=== PATIENT | female | born 2000 | race Two or more races ===

== ENCOUNTER 2024-06-07 20:51 | Emergency (ER) | payer MEDICAID, SELFPAY ==
[2024-06-07 20:52] VITALS: BMI 21.7
[2024-06-07 21:01] VITALS: BP 110/72; PULSE 92; RESP 20; TEMP 37.1; O2SAT 95
--- NOTE | 2024-06-07 21:14 | XR_ITS ---
Examination: PA lateral chest 2 views TECHNIQUE: Upright PA lateral chest 2 views Exam date and time: June 07, 2024 2132 hours INDICATIONS: Cough and fever beginning 4 days ago. FINDINGS: Significant pneumonia left base Minimal pneumonia right perihilar region Normal heart size IMPRESSION: Significant pneumonia left base
--- NOTE | 2024-06-07 21:18 | EDNOTE_ITS ---
Upper Respiratory Inf. RME/HPI General Chief Complaint: Dental/Oral/Throat Stated Complaint: sore throat Time Seen by Provider: 06/07/24 21:14 Arrival date/time: 06/07/24 20:51 23 year old female present to emergency room with c/o of sore throat and cough for 3 days. LOCATION: posterior oral pharynx SEVERITY: Symptoms are described as being severe with limitations on activities of daily living QUALITY: Symptoms are described as being dull or achy CONTEXT: The patient is unable to identify any inciting events. DURATION/TIMING: The symptoms started approximately 3 day ago and have been constant this then. ASSOCIATED SYMPTOMS: The patient is unable to identify any other associated symptoms. MODIFYING FACTORS: worse with swallowing PERTINENT ROS: denies any food or liquids getting stuck, denies any generalized weakness, denies any trauma, no chest pain, no abdominal pain, no rashes, no joint swelling REVIEW OF SYSTEMS: See History of Present Illness - with the exception of those mentioned in the history of present illness, all other systems reviewed and reported as negative GENERAL: In general the patient is awake, interactive, in an emergency department gurney. HEAD/EYES/EARS/NOSE/THROAT: normo-cephalic, atraumatic, mucus membranes are moist, anicteric, palpebral conjunctiva is pink, trachea is midline. CARDIOVASCULAR: regular rate and regular rhythm, no murmurs, heart sounds are not distant, strong pulses in all four extremities that are equal and symmetric bilateral upper and lower extremities, normal capillary refill. CHEST/PULMONARY: normal chest rise and fall, good air movement, clear to auscultation bilaterally, normal inspiratory to expiratory ratios without evidence of respiratory distress. NECK: No midline/Paraspinal tenderness, no step off ROM/Strenght intact No Kernig and bruzinski sign. No trauma ABDOMEN: soft, not tender, no masses appreciated BACK: normal range of motion without pain. NEUROLOGICAL: cranio-facial features are symmetric, moves all four extremities equally without obvious limitations or weakness. EXTREMITY: no tenderness to palpation over the long bones or large joints of the bilateral upper and lower extremities, no joint swelling, no joint erythema, no signs of trauma, no unilateral leg swelling and no peripheral edema. SKIN: warm, dry, well-perfused, no jaundice, no rash, no telangiectasias or petechia. PSYCH: calm, cooperative, no evidence of psychosis or agitation Related Data Previous Rx's ?Medication ?Instructions ?Recorded azithromycin 500 mg tablet 500 mg PO QDAY 3 days #3 ta bs 06/07/24 methylprednisolone 4 mg tablets in 4 mg PO .as directe d #21 tabs 06/07/24 a dose pack (Medrol (Piyush)) Allergies Allergy/AdvReac Type Severity Reaction Status Date / Time No Known Allergies Allergy Verified 06/07/24 20:57 Course Course Course Narrative: xray, strep ,covid/flu tylenol, decadron Quality Measures none Orders Category Date Time Status Bedside Influenza A&B Antigen Test NOW Care 06/07/24 21:13 Completed XR chest 2V Stat Exams 06/07/24 21:14 Completed Strep A Rapid Stat Lab 06/07/24 21:15 Completed Acetaminophen Tab [Tylenol ES Tab] Med 06/07/24 21:13 Discontinued 1,000 mg PO X1 ONE Azithromycin Po [Zithromax PO] Med 06/07/24 22:05 Discontinued 500 mg PO X1 ONE Dexamethasone Inj [Decadron Inj] Med 06/07/24 21:13 Discontinued 10 mg PO X1 ONE Reevaluation(s) Reevaluation #1: pt is feeling better Vital Signs Vital signs: Vital Signs Temperature 98.7 F 06/07/24 21:01 Pulse Rate 92 06/07/24 21:01 Respiratory Rate 20 06/07/24 21:01 Blood Pressure 110/72 06/07/24 21:01 Pulse Oximetry (%) 95 06/07/24 21:01 Oxygen Delivery Method Room Air 06/07/24 21:01 Upper Respiratory Infection Patient data External records reviewed:: [facility] previous records Clinical information provided by:: patient Social determinants that could affect healthcare access:: none Patient has the following chronic illnesses:: n/a How is presenting disease/condition affected by chronic disease/condition?: no chronic disease Evaluation data The following diagnostics were reviewed and interpreted by me:: lab results and radiology exam(s) Lab and/or radiology exams considered but not ordered:: n/a Interpretation Summary: + flu, negative strep xray; Significant pneumonia left base Minimal pneumonia right perihilar region Normal heart size IMPRESSION: Significant pneumonia left base Medications / Prescriptions Medications or Prescriptions considered but not ordered:: n/a Medication administrations:: Medication Administration History Discontinued Medications Acetaminophen (Acetaminophen 500 Mg Tablet) 1,000 mg PO X1 ONE Stop: 06/07/24 21:14 Last Admin: 06/07/24 22:13 Dose: 1,000 mg Documented By: KF Azithromycin (Azithromycin 250 Mg Tablet) 500 mg PO X1 ONE Stop: 06/07/24 22:06 Last Admin: 06/07/24 22:13 Dose: 500 mg Documented By: KF Dexamethasone Sodium Phosphate (Dexamethasone Sod Phos Inj 10 Mg/Ml Vial) 10 mg PO X1 ONE Stop: 06/07/24 21:14 Last Admin: 06/07/24 22:14 Dose: 10 mg Documented By: KF n/a Consultations Consultation(s) initiated? (list below): No Diagnosis Upper Respiratory Differential Diagnosis: upper respiratory infection, viral infection, bronchitis, influenza, pharyngitis and other (pna ) Most likely diagnosis given after review of the tests above:: pna , flu Admission Indicated Admission indicated?: not indicated Admission Request Was there a request for admission?: No Disposition Plan Disposition Plan: Discharge Discharge Attestation Discharge Attestation: The patient and all family members were given an opportunity to ask questions and understood the discharge instructions. Discharge instructions specifically effects, indications for sooner follow up or return to the emergency department, and the expected course of current diagnosis. Patient condition: Stable Discharge Plan Plan Patient Disposition: HOME (Self Care) Prescriptions/Referrals Prescriptions/Med Rec: New azithromycin 500 mg tablet 500 mg PO QDAY 3 Days Qty: 3 0RF methylprednisolone [Medrol (Piyush)] 4 mg tablets,dose pack 4 mg PO .as directed Qty: 21 0RF Referrals: No Primary/Family,Physician [Primary Care Provider] - In 1 week Problem List Clinical Impression: Pneumonia, Influenza Patient/Caregiver Discharge Instructions Education Materials: ED Influenza (Adult), ED Pneumonia (Adult) Print Language: Latvian Stand Alone Forms: Whitney Award Info., Patient Portal Info Letter
[2024-06-07 21:48] LABS: Strep A Rapid Negative (Negative)
[2024-06-07] MEDS: AZITHROMYCIN 250 MG TABLET 500 MG PO (22:13)
[2024-06-07] MEDS: ACETAMINOPHEN 500 MG TABLET 1000 MG PO (22:13)
[2024-06-07] MEDS: DEXAMETHASONE SOD PHOS INJ 10 MG/ML VIAL PO (22:14)
== END 2024-06-07 22:31 | disposition home or self-care (01) ==
PROVIDERS: Physician Assistant; Emergency Provider Emergency Medicine
DX: J11.00 Influenza due to unidentified influenza virus with unspecified type of pneumonia (principal)
CPT/HCPCS: 71046; 87400; 87651; 99283; J1100; A9270